=== PATIENT | male | born 1995 | race Caucasian/White ===

== ENCOUNTER 2016-12-15 09:57 | Emergency (ER) ==
[2016-12-15 10:08] VITALS: BP 126/84; TEMP 97.4; BMI 19.3
[2016-12-15] MEDS ORDERED: ZOFRAN 4 MG/2 ML IVP STA (10:20)
[2016-12-15] MEDS ORDERED: SODIUM CHLORIDE 1,000 ML IV STA (10:20)
--- NOTE | 2016-12-15 10:20 | ED.PDOC ---
General ED Provider: Dr. STEVIE HEDRICK Chief Complaint: Nausea/Vomiting Stated Complaint: Patient is a 21 year old male who states that he wakes each morning and vomits the vomiting lasts 2-3 hours. He the is able to drink after vomiting subsides. He then reports Abdominal pain all day. He was Hospitalzied two monts ago in [facility] for same reason with ' kidneys shut down' diagnosis. He has an Apt with the Clinic for next week but symtoms got worse. Time Seen by Physician: 10:13 Mode of Arrival: Walk-In Information Source: Patient Exam Limitations: No limitations [facility] Nursing and Triage Documentation Reviewed and Agree: Yes GI Complaint Exam - Abdominal Pain Complaint/Exam Onset: Gradual Duration: 2 months Timing: Intermittent Initial Severity: Moderate Current Severity: None Location of Pain: RLQ Radiates To: Denies: Chest, Back, Flank, LLQ, RLQ, Inguinal Character: Reports: Dull, Aching Aggravating: Reports: Food (Fatty greecy ) Alleviating: Reports: Vomiting Associated Signs and Symptoms: Reports: Nausea, Vomiting, Diarrhea. Denies: Diaphoresis, Fever, Cough, Chest pain, Dizziness, Back pain, Constipation, Blood in stool, Dysuria, Urinary frequency, Decreased urine output, Decreased appetite, Discharge, Decreased activity AAA Risk Factors: Reports: None Cardiac Risk Factors: Reports: None Testicular Torsion Risk Factors: Reports: None Surgical Obstruction Risk Factors: Reports: None Related Surgical History: Reports: None Abdominal Findings: Absent: Pulsatile mass, Abdominal distention, Unequal femoral pulses, Rebound tenderness, Peritoneal signs, McBurney's Point tender, CVA Tenderness, Hernia Differential Diagnoses: Appendicitis, Bowel Obstruction, Gastroenteritis, UTI Review of Systems - Review Of Systems Constitutional: Reports: No symptoms Eyes: Reports: No symptoms Ears, Nose, Mouth, Throat: Reports: No symptoms Respiratory: Reports: No symptoms Cardiac: Reports: No symptoms GI: Reports: Abdominal pain, Diarrhea, Nausea, Vomiting : Reports: No symptoms Musculoskeletal: Reports: No symptoms Skin: Reports: No symptoms Neurological: Reports: No symptoms Endocrine: Reports: No symptoms Hematologic/Lymphatic: Reports: No symptoms All Other Systems: Reviewed and Negative Past Medical History - Past Medical History Previously Healthy: Yes Endocrine: Reports: None Cardiovascular: Reports: None Respiratory: Reports: None Hematological: Reports: None Gastrointestinal: Reports: None Genitourinary: Reports: None Neuro/Psych: Reports: None Musculoskeletal: Reports: None Cancer: Reports: None - Surgical History General Surgical History: Reports: None - Family History Family History: Reports: Other (Gall bladder disease ) - Social History Smoking Status: Never smoker, Dips snuff Hx Substance Use: No Alcohol Screening: None Physical Exam - Physical Exam Appearance: Well-appearing, No pain distress, Well-nourished Eyes: ALEKSEY, EOMI, Conjunctiva clear ENT: Ears normal, Nose normal, Oropharynx normal Respiratory: Airway patent, Breath sounds clear, Breath sounds equal, Respirations nonlabored Cardiovascular: RRR, Pulses normal, No rub, No murmur GI/: Soft, No masses, Bowel sounds normal, No Organomegaly, Tender (right lower quadrant mild tenderness ) Musculoskeletal: Normal strength, ROM intact, No edema, No calf tenderness Skin: Warm, Dry, Normal color Neurological: Sensation intact, Motor intact, Reflexes intact, Cranial nerves intact, Alert, Oriented Psychiatric: Anxious Interpretation - Radiology Interpretation Radiology Interpretation By: Radiologist Radiology Results: Negative Exam Interpreted: CT Scan Critical Care Note - Critical Care Note Total Time (mins): 0 Course - Course Hematology/Chemistry: 12/15/16 10:25 12/15/16 10:25 Orders, Labs, Meds: Lab Review 12/15/16 12/15/16 10:25 11:22 WBC 10.09 RBC 4.87 Hgb 15.6 Hct 45.0 MCV 92.4 MCH 32.0 H MCHC 34.7 RDW Coeff of Donna 11.8 Plt Count 245 Immature Gran % (Auto) 0.8 Neut % (Auto) 78.5 Lymph % (Auto) 13.4 Pike % (Auto) 6.2 Eos % (Auto) 0.4 Baso % (Auto) 0.7 Immature Gran # (Auto) 0.1 Neut # 7.9 H Lymph # 1.4 Pike # 0.6 Eos # 0.0 Baso # 0.1 Sodium 140 Potassium 4.3 Chloride 105 Carbon Dioxide 27 Anion Gap 12.3 BUN 15 Creatinine 0.96 Estimated GFR (MDRD) 97.00 BUN/Creatinine Ratio 15.62 Glucose 98 Calcium 9.6 Total Bilirubin 0.32 AST 18 ALT 17 Alkaline Phosphatase 51 Total Protein 7.5 Albumin 4.6 Globulin 2.9 Albumin/Globulin Ratio 1.59 Amylase 68 Lipase 30 Urine Color Yellow Urine Clarity Clear Urine pH 6.5 Ur Specific Alta 1.010 Urine Protein Negative Urine Glucose (UA) Negative Urine Ketones Negative Urine Blood Trace-intact Urine Nitrite Negative Urine Bilirubin Negative Urine Urobilinogen 0.2 Ur Leukocyte Esterase Negative Ur Squamous Epith Cells 0-2 Orders Category Date Time Status NPO REMINDER: IMAGING ONCE CARE 12/15/16 10:22 Completed ED IV/MEDIPORT/POWERPORT .ONCE EMERGENCY 12/15/16 10:20 Active AMYLASE Stat LAB 12/15/16 10:25 Completed CBC W/ AUTO DIFF Stat LAB 12/15/16 10:25 Completed COMPREHENSIVE METABOLIC PANEL Stat LAB 12/15/16 10:25 Completed LIPASE Stat LAB 12/15/16 10:25 Completed URINALYSIS C & S IF INDICATED Stat LAB 12/15/16 11:22 Completed 0.9 % Sodium Chloride [Saline Flush] MEDS 12/15/16 10:20 Discontinued 1 syr IVF PRN PRN Ondansetron HCl/Pf [Zofran 4 mg/2 ml] MEDS 12/15/16 10:20 Discontinued 4 mg IVP ONCE STA Sodium Chloride 0.9% [Sodium Chloride] 1,000 ml MEDS 12/15/16 10:[address] ABDOMEN/PELVIS W CONTRAST Stat RADS 12/15/16 10:21 Completed Medications Discontinued Medications Generic Name Dose Route Start Last Admin Trade Name Freq PRN Reason Stop Dose Admin Sodium Chloride 1,000 mls @ 1,000 mls/hr 12/15/16 10:20 12/15/16 10:56 Sodium Chloride IV 12/15/16 11:19 1,000 mls/hr BOLUS STA Administration Ondansetron HCl 4 mg 12/15/16 10:20 12/15/16 10:56 Zofran 4 Mg/2 Ml IVP 12/15/16 10:21 4 mg ONCE STA Administration Sodium Chloride 1 syr 12/15/16 10:20 Saline Flush IVF PRN PRN To flush IV Vital Signs: Temp Pulse Resp BP Pulse Ox 12/15/16 09:58 97.4 F L 60 20 126/84 98 Departure - Departure Time of Disposition: 12:20 Disposition: HOME SELF-CARE Discharge Problem: Abdominal pain, Vomiting, Nausea Instructions: Abdominal Pain (ED) Condition: Good Pt referred to PMD for follow-up: Yes Additional Instructions: Keep you apt with the clinic Eat low fat diet until then Take nausea medications as needed. Prescriptions: Ondansetron HCl [Zofran Tab] 4 mg PO Q8H PRN #14 tablet PRN Reason: Nausea / Vomiting Allergies/Adverse Reactions: Allergies smoke Allergy (Uncoded 12/15/16 10:08) Home Medications: Ambulatory Orders Ondansetron HCl [Zofran Tab] 4 mg PO Q8H PRN #14 tablet 12/15/16 Disposition Discussed With: Patient, Family
[2016-12-15 10:31] LABS: BASOPHILS # (AUTO) 0.1 K/uL (0-0.2); BASOPHILS % (AUTO) 0.7 % (0.0-3.0); EOSINOPHILS % (AUTO) 0.4 % (0.0-7.0); HEMOGLOBIN 15.6 g/dl (14.0-18.0); IMMATURE GRANULOCYTE % (AUTO) 0.8 % (0.0-5.0); LYMPHOCYTES # (AUTO) 1.4 K/uL (0.60-3.4); LYMPHOCYTES % (AUTO) 13.4 (10.0-50.0); MEAN CORPUSCULAR HGB CONC 34.7 (31.8-35.4); MEAN CORPUSCULAR VOLUME 92.4 fl (80.0-94.0); MONOCYTES # (AUTO) 0.6 K/uL (0.4-2.0); MONOCYTES % (AUTO) 6.2 (0-10); NEUTROPHILS # (AUTO) 7.9 K/ul (2.0-6.9); NEUTROPHILS % (AUTO) 78.5; PLATELET COUNT 245 10^3/uL (140-440); RED BLOOD COUNT 4.87 10^6/ul (4.70-6.10); WHITE BLOOD COUNT 10.09 K/ul (4.2-10.2)
[2016-12-15 10:51] LABS: ALBUMIN 4.6 g/dL (3.4-5.0); ALBUMIN/GLOBULIN RATIO 1.59; ANION GAP 12.3; BILIRUBIN,TOTAL 0.32 mg/dL (0.00-1.20); BUN/CREATININE RATIO 15.62; CALCIUM 9.6 mg/dL (8.2-10.2); CREATININE 0.96 mg/dL (0.60-1.10); POTASSIUM 4.3 mmol/L (3.5-5.1); TOTAL PROTEIN 7.5 g/dL (6.4-8.2)
--- NOTE | 2016-12-15 11:33 | CT ---
Exam: CT of the abdomen pelvis with intravenous contrast. Comparison: None available. Reason for exam: Right lower quadrant tenderness. FINDINGS: No pleural effusion, or focal consolidation in the partially imaged lung bases. The liver, spleen, pancreas, and gallbladder are unremarkable. No hydronephrosis, hydroureter, or nephrolithiasis. The small bowel is grossly unremarkable without focal dilatation. No discrete inflammatory changes are seen within the abdomen or pelvis. The appendix is not well se en secondary to a paucity of intra-abdominal fat. No intra-abdominal free air or pelvic free fluid. No inflammatory changes are seen in the expected location of the appendix. No osteoblastic or ost eolytic lesions. There is a grade 1 anterior listhesis of L5 on S1 with bilateral pars defects. Impression: 1. No acute inflammatory findings are seen within the abdomen or pelvis. The appendix is not defin itively seen although no inflammatory changes are seen in the expected location of the appendix. 2. 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 Report faxed at [phone] hours on 12/15/2016.
[2016-12-15 11:37] LABS: BILIRUBIN,URINE Negative (NEGATIVE); KETONES,URINE Negative (NEGATIVE); LEUKOCYTE ESTERASE ,URINE Negative (NEGATIVE); NITRITE,URINE Negative (NEGATIVE); PH,URINE 6.5 (5-9); PROTEIN,URINE Negative (NEGATIVE); URINE, BLOOD Trace-intact (NEGATIVE)
[2016-12-15 11:39] LABS: ADD URINE MICROSCOPIC YES
== END 2016-12-15 12:40 | disposition home or self-care (01) ==
LOC: ED 09:57
DX: R10.31 Right lower quadrant pain (principal); R11.2 Nausea with vomiting, unspecified; R19.7 Diarrhea, unspecified; F17.220 Nicotine dependence, chewing tobacco, uncomplicated
CPT/HCPCS: 36415; 80053; 81001; 82150; 83690; 85025; 96361; 96374; 99283

== ENCOUNTER 2016-12-20 08:26 | Outpatient (CLI) ==
--- NOTE | 2016-12-20 09:26 | US ---
EXAM: Abdominal ultrasound limited HISTORY: Generalized abdominal pain with nausea and vomiting COMPARISON: CT abdomen pelvis 12/15/2016 TECHNIQUE: Sonographic and limited Doppler evaluation of the right upper quadrant was performed. FINDINGS: The liver is normal in echogenicity and measures 10.1 cm. The portal vein is patent. Th e gallbladder demonstrates no stones or sludge. The gallbladder wall measures 0.3 cm. Common bile d uct is unremarkable and measures 0.2 cm in diameter. The pancreas is unremarkable in appearance. Th e right kidney measures 10.2 x 3.5 x 3.7 cm with cortical thickness of 0.8 cm. There is no hydronep hrosis, hydroureter or visualized stone. IMPRESSION: No acute sonographic abnormality to account for patient's symptoms.
== END 2016-12-20 08:27 | disposition home or self-care (01) ==
LOC: RAD 08:26
PROVIDERS: ATTEND Nurse Practitioner Family
DX: R10.84 Generalized abdominal pain (principal); R11.2 Nausea with vomiting, unspecified

== ENCOUNTER 2016-12-21 07:54 | Outpatient (CLI) ==
--- NOTE | 2016-12-21 11:00 | NM ---
EXAM: Hepatobiliary imaging HISTORY: Abdominal pain COMPARISON: Limited abdominal ultrasound on 12/20/2016 showed no abnormality. TECHNIQUE: Patient was injected 5.4 mCi of technetium 99m Choletec intravenously. Multiple anterior scintigraphic images of the right upper quadrant region of the abdomen were obtained up to 1 hour i nterval. The patient was infused 1.3 mcg of cholecystokinin intravenously and gallbladder ejection fraction was calculated. FINDINGS: There is normal visualization of liver, gallbladder, bile duct and small bowel loops. Gal lbladder ejection fraction is 58%. IMPRESSION: Normal study
== END 2016-12-21 07:55 | disposition home or self-care (01) ==
LOC: RAD 07:54
PROVIDERS: ATTEND Nurse Practitioner Family
DX: R10.84 Generalized abdominal pain (principal); R11.2 Nausea with vomiting, unspecified